=== PATIENT | male | born 1960 | race Caucasian/White ===

== ENCOUNTER → 2019-05-05 | Outpatient (CLI) | payer BC, OTHER | LOC: MRI 09:22 | DX: S12.400A Unspecified displaced fracture of fifth cervical vertebra, initial encounter for closed fracture (principal); M50.21 Other cervical disc displacement, high cervical region; M12.88 Other specific arthropathies, not elsewhere classified, other specified site; M50.31 Other cervical disc degeneration, high cervical region; M48.02 Spinal stenosis, cervical region; X58.XXXA Exposure to other specified factors, initial encounter; Y93.89 Activity, other specified; Y92.89 Other specified places as the place of occurrence of the external cause; Y99.8 Other external cause status ==